=== PATIENT | female | born 1990 | race Caucasian/White ===

== ENCOUNTER 2017-10-25 15:24 | Emergency (ER) | payer OTHER ==
[2017-10-25 16:16] LABS: ADD MAN DIFF? NO
[2017-10-25 16:18] LABS: WHITE BLOOD COUNT 8.2 10^3/ul (4.8-10.8)
[2017-10-25 16:18] LABS: BASOPHIL # 0.1 10^3/ul (0.0-0.1); BASOPHILS % 0.6 % (0.0-2.0); EOSINOPHILS # 0.5 10^3/ul (0.0-0.5); EOSINOPHILS % 5.5 % (0.0-7.0); HEMATOCRIT 37.8 % (37.0-47.0); HEMOGLOBIN 12.4 g/dl (12.0-16.0); LYMPHOCYTES # 3.3 10^3/ul (0.8-2.9); LYMPHOCYTES % 40.5 % (15.0-51.0); MEAN CORPUSCULAR HEMOGLOBIN 26.7 pg (29.0-33.0); MEAN CORPUSCULAR HGB CONC 32.8 g/dl (32.0-37.0); MEAN CORPUSCULAR VOLUME 81.5 fl (82.0-101.0); MONOCYTE # 0.6 10^3/ul (0.3-0.9); MONOCYTES % 7.8 % (0.0-11.0); NEUTROPHIL # 3.7 10^3/ul (1.6-7.5); NEUTROPHILS % 45.4 % (39.0-77.0); PLATELET COUNT 378 10^3/UL (140-415); RED BLOOD COUNT 4.64 10^6/ul (4.20-5.40); RED CELL DISTRIBUTION WIDTH 15.1 % (11.5-14.5)
[2017-10-25] MEDS: SOD CHLORIDE 0.9% 1,000 ML IV (16:24)
[2017-10-25] MEDS: ONDANSETRON 4 MG INJ IV (16:25)
[2017-10-25] MEDS: morphine 4 MG/ML VIAL IV (16:25)
[2017-10-25 16:37] LABS: ALANINE AMINOTRANSFERASE 45 IU/L (13-69); ALBUMIN 4.3 g/dl (3.3-4.9); ALBUMIN/GLOBULIN RATIO 1.48; ALKALINE PHOSPHATASE 77 IU/L (42-121); ANION GAP 17 (8-16); ASPARTATE AMINO TRANSFERASE 29 IU/L (15-46); BILIRUBIN,INDIRECT 0.3 mg/dl (0-1.1); BILIRUBIN,TOTAL 0.3 mg/dl (0.2-1.3); BLOOD UREA NITROGEN 7 mg/dl (7-20); CALCIUM 8.6 mg/dl (8.4-10.2); CARBON DIOXIDE 24 mmol/L (21-31); CHLORIDE 103 mmol/L (97-110); CREATININE 0.57 mg/dl (0.44-1.00); GLUCOSE 105 mg/dl (70-220); LIPASE 160 U/L (23-300); POTASSIUM 4.2 mmol/L (3.5-5.1); SODIUM 140 mmol/L (135-144); TOTAL PROTEIN 7.2 g/dl (6.1-8.1)
[2017-10-25 16:49] LABS: ADD UMIC YES; UR ASCORBIC ACID NEGATIVE (NEGATIVE); UR BILIRUBIN (Dip) NEGATIVE (NEGATIVE); UR BLOOD (Dip) 1+ mg/dL (NEGATIVE); UR CLARITY CLEAR (CLEAR); UR COLOR STRAW (YELLOW); UR GLUCOSE (Dip) NEGATIVE (NEGATIVE); UR KETONES (Dip) NEGATIVE (NEGATIVE); UR LEUKOCYTE ESTERASE (Dip) TRACE Leu/ul (NEGATIVE); UR NITRITE (Dip) NEGATIVE (NEGATIVE); UR RBC 1 /HPF (0-5); UR SPECIFIC GRAVITY (Dip) 1.002 (1.003-1.030); UR TOTAL PROTEIN (Dip) NEGATIVE (NEGATIVE); UR UROBILINOGEN (Dip) NEGATIVE (NEGATIVE); UR WBC 1 /HPF (0-5)
== END 2017-10-25 20:30 | disposition home or self-care (01) ==
LOC: E/R 15:24
DX: R10.31 Right lower quadrant pain (principal); R40.2142 Coma scale, eyes open, spontaneous, at arrival to emergency department; R40.2252 Coma scale, best verbal response, oriented, at arrival to emergency department; R40.2362 Coma scale, best motor response, obeys commands, at arrival to emergency department; R10.2 Pelvic and perineal pain
CPT/HCPCS: 36415; 74176; 76856; 80053; 81001; 83690; 85025; 96374; 96375; 99285-25

== ENCOUNTER 2017-11-17 20:57 | Emergency (ER) | payer OTHER ==
[2017-11-18] MEDS: IBUPROFEN 800 MG TAB PO (07:04)
== END 2017-11-18 08:32 | disposition home or self-care (01) ==
LOC: FTE 20:57
DX: R07.81 Pleurodynia (principal)
CPT/HCPCS: 71045; 93005; 99284-25

== ENCOUNTER 2018-08-09 14:39 | Emergency (ER) | payer OTHER ==
[2018-08-09] MEDS: LIDOCAINE/MYLANTA 40 ML BTL PO (15:19)
[2018-08-09] MEDS: ONDANSETRON 4 MG INJ IV (15:19)
[2018-08-09] MEDS: FAMOTIDINE 20 MG INJ IV (15:19)
[2018-08-09 15:20] LABS: ADD MAN DIFF? NO
[2018-08-09 15:28] LABS: WHITE BLOOD COUNT 8.8 10^3/ul (4.8-10.8)
[2018-08-09 15:28] LABS: BASOPHILS % 0.3 % (0.0-2.0); EOSINOPHILS # 0.3 10^3/ul (0.0-0.5); EOSINOPHILS % 3.5 % (0.0-7.0); HEMOGLOBIN 13.1 g/dl (12.0-16.0); LYMPHOCYTES # 3.2 10^3/ul (0.8-2.9); LYMPHOCYTES % 36.1 % (15.0-51.0); MEAN CORPUSCULAR HEMOGLOBIN 27.9 pg (29.0-33.0); MEAN CORPUSCULAR HGB CONC 33.6 g/dl (32.0-37.0); MEAN PLATELET VOLUME 10.1 fl (7.4-10.4); MONOCYTE # 0.7 10^3/ul (0.3-0.9); MONOCYTES % 7.9 % (0.0-11.0); NEUTROPHIL # 4.6 10^3/ul (1.6-7.5); NEUTROPHILS % 52.1 % (39.0-77.0); PLATELET COUNT 286 10^3/UL (140-415); RED CELL DISTRIBUTION WIDTH 13.9 % (11.5-14.5)
[2018-08-09 15:38] LABS: ADD UMIC NO; UR ASCORBIC ACID NEGATIVE (NEGATIVE); UR BILIRUBIN (Dip) NEGATIVE (NEGATIVE); UR BLOOD (Dip) NEGATIVE (NEGATIVE); UR CLARITY CLEAR (CLEAR); UR COLOR STRAW (YELLOW); UR GLUCOSE (Dip) NEGATIVE (NEGATIVE); UR KETONES (Dip) NEGATIVE (NEGATIVE); UR LEUKOCYTE ESTERASE (Dip) NEGATIVE Leu/ul (NEGATIVE); UR NITRITE (Dip) NEGATIVE (NEGATIVE); UR SPECIFIC GRAVITY (Dip) 1.009 (1.003-1.030); UR TOTAL PROTEIN (Dip) NEGATIVE (NEGATIVE); UR UROBILINOGEN (Dip) 2+ mg/dL (NEGATIVE)
[2018-08-09 15:49] LABS: ALANINE AMINOTRANSFERASE 58 IU/L (13-69); ALBUMIN 3.8 g/dl (3.3-4.9); ALBUMIN/GLOBULIN RATIO 1.11; ALKALINE PHOSPHATASE 76 IU/L (42-121); ANION GAP 13 (5-13); ASPARTATE AMINO TRANSFERASE 44 IU/L (15-46); BILIRUBIN,INDIRECT 0.3 mg/dl (0-1.1); BILIRUBIN,TOTAL 0.3 mg/dl (0.2-1.3); BLOOD UREA NITROGEN 8 mg/dl (7-20); CALCIUM 9.5 mg/dl (8.4-10.2); CARBON DIOXIDE 22 mmol/L (21-31); CHLORIDE 106 mmol/L (97-110); CREATININE 0.78 mg/dl (0.44-1.00); Estimated GFR > 60 mL/min (>60); GLUCOSE 121 mg/dl (70-220); LIPASE 163 U/L (23-300); SODIUM 141 mmol/L (135-144); TOTAL PROTEIN 7.2 g/dl (6.1-8.1)
== END 2018-08-09 16:47 | disposition home or self-care (01) ==
LOC: FTE 14:39
DX: K80.20 Calculus of gallbladder without cholecystitis without obstruction (principal)
CPT/HCPCS: 76705; 80053; 81003; 81025; 83690; 85025; 96374; 96375; 99285-25

== ENCOUNTER 2018-11-14 17:06 | Inpatient (IN) | payer OTHER ==
[2018-11-14] MEDS: SOD CHLORIDE 0.9% 1,000 ML IV (17:51)
[2018-11-14] MEDS: KETOROLAC 15 MG INJ IV (17:53)
[2018-11-14] MEDS: ONDANSETRON 4 MG INJ IV ×2 (17:53→21:12)
[2018-11-14 17:56] LABS: ADD MAN DIFF? NO
[2018-11-14 17:57] LABS: WHITE BLOOD COUNT 10.8 10^3/ul (4.8-10.8)
[2018-11-14 17:57] LABS: BASOPHIL # 0.1 10^3/ul (0.0-0.1); BASOPHILS % 0.6 % (0.0-2.0); EOSINOPHILS # 0.6 10^3/ul (0.0-0.5); EOSINOPHILS % 5.4 % (0.0-7.0); HEMATOCRIT 40.5 % (37.0-47.0); HEMOGLOBIN 13.3 g/dl (12.0-16.0); LYMPHOCYTES # 3.8 10^3/ul (0.8-2.9); LYMPHOCYTES % 35.1 % (15.0-51.0); MEAN CORPUSCULAR HEMOGLOBIN 27.8 pg (29.0-33.0); MEAN CORPUSCULAR HGB CONC 32.8 g/dl (32.0-37.0); MEAN CORPUSCULAR VOLUME 84.6 fl (82.0-101.0); MEAN PLATELET VOLUME 9.8 fl (7.4-10.4); MONOCYTE # 0.8 10^3/ul (0.3-0.9); MONOCYTES % 7.6 % (0.0-11.0); NEUTROPHIL # 5.6 10^3/ul (1.6-7.5); PLATELET COUNT 281 10^3/UL (140-415); RED BLOOD COUNT 4.79 10^6/ul (4.20-5.40); RED CELL DISTRIBUTION WIDTH 13.7 % (11.5-14.5)
[2018-11-14 18:00] LABS: ADD UMIC YES; UR ASCORBIC ACID NEGATIVE (NEGATIVE); UR BILIRUBIN (Dip) NEGATIVE (NEGATIVE); UR BLOOD (Dip) NEGATIVE (NEGATIVE); UR CLARITY SLIGHTLY CLOUDY (CLEAR); UR COLOR YELLOW (YELLOW); UR GLUCOSE (Dip) NEGATIVE (NEGATIVE); UR KETONES (Dip) NEGATIVE (NEGATIVE); UR LEUKOCYTE ESTERASE (Dip) TRACE Leu/ul (NEGATIVE); UR NITRITE (Dip) NEGATIVE (NEGATIVE); UR RBC 1 /HPF (0-5); UR SPECIFIC GRAVITY (Dip) 1.014 (1.003-1.030); UR SQUAMOUS EPITHELIAL CELL FEW /HPF (FEW); UR TOTAL PROTEIN (Dip) NEGATIVE (NEGATIVE); UR UROBILINOGEN (Dip) NEGATIVE (NEGATIVE); UR WBC 1 /HPF (0-5)
[2018-11-14 18:14] LABS: ALANINE AMINOTRANSFERASE 41 IU/L (13-69); ALBUMIN 4.5 g/dl (3.3-4.9); ALKALINE PHOSPHATASE 75 IU/L (42-121); ANION GAP 10 (5-13); ASPARTATE AMINO TRANSFERASE 38 IU/L (15-46); BILIRUBIN,INDIRECT 0.1 mg/dl (0-1.1); BILIRUBIN,TOTAL 0.1 mg/dl (0.2-1.3); BLOOD UREA NITROGEN 9 mg/dl (7-20); CALCIUM 9.5 mg/dl (8.4-10.2); CARBON DIOXIDE 25 mmol/L (21-31); CHLORIDE 105 mmol/L (97-110); Estimated GFR > 60 mL/min (>60); GLUCOSE 105 mg/dl (70-220); LIPASE 250 U/L (23-300); POTASSIUM 4.1 mmol/L (3.5-5.1); SODIUM 140 mmol/L (135-144); TOTAL PROTEIN 7.7 g/dl (6.1-8.1)
[2018-11-14 18:24] LABS: INR 0.85; PROTIME 11.7 Sec (11.9-14.9); PT RATIO 0.9
[2018-11-14] MEDS: PIPER-TAZO 3.375 GM IV (PMX) 100 ML IVPB (20:23)
[2018-11-14] MEDS ORDERED: ACETAMINOPHEN 325 MG TAB PO (21:00)
[2018-11-14] MEDS: HYDROmorphONE 0.5 MG/0.5 ML SYG IV (21:12)
[2018-11-14] MEDS ORDERED: ALBUTEROL/IPRATROPIUM (NEB) 3 ML AMP HHN (21:30)
[2018-11-14] MEDS ORDERED: morphine 2 MG INJ IV (21:30)
[2018-11-14] MEDS ORDERED: ONDANSETRON 4 MG INJ IV (21:30)
[2018-11-14] MEDS ORDERED: NACL 0.9% 3 ML SYG IV (21:30)
[2018-11-14] MEDS: morphine 4 MG/ML VIAL IV (22:54)
[2018-11-14] MEDS: DEXTROSE 5%-0.45% NACL 1,000 ML IV (22:54)
[2018-11-15 04:57] LABS: ADD MAN DIFF? NO
[2018-11-15 05:03] LABS: WHITE BLOOD COUNT 8.5 10^3/ul (4.8-10.8)
[2018-11-15 05:03] LABS: BASOPHILS % 0.4 % (0.0-2.0); EOSINOPHILS # 0.5 10^3/ul (0.0-0.5); EOSINOPHILS % 5.4 % (0.0-7.0); HEMATOCRIT 36.9 % (37.0-47.0); HEMOGLOBIN 11.9 g/dl (12.0-16.0); LYMPHOCYTES # 3.4 10^3/ul (0.8-2.9); LYMPHOCYTES % 40.1 % (15.0-51.0); MEAN CORPUSCULAR HEMOGLOBIN 27.7 pg (29.0-33.0); MEAN CORPUSCULAR HGB CONC 32.2 g/dl (32.0-37.0); MEAN CORPUSCULAR VOLUME 85.8 fl (82.0-101.0); MEAN PLATELET VOLUME 10.1 fl (7.4-10.4); MONOCYTE # 0.6 10^3/ul (0.3-0.9); MONOCYTES % 6.7 % (0.0-11.0); NEUTROPHILS % 47.3 % (39.0-77.0); PLATELET COUNT 260 10^3/UL (140-415)
[2018-11-15 05:37] LABS: ALANINE AMINOTRANSFERASE 40 IU/L (13-69); ALBUMIN 3.6 g/dl (3.3-4.9); ALBUMIN/GLOBULIN RATIO 1.16; ALKALINE PHOSPHATASE 57 IU/L (42-121); ANION GAP 6 (5-13); ASPARTATE AMINO TRANSFERASE 29 IU/L (15-46); BILIRUBIN,INDIRECT 0.4 mg/dl (0-1.1); BILIRUBIN,TOTAL 0.4 mg/dl (0.2-1.3); BLOOD UREA NITROGEN 6 mg/dl (7-20); CALCIUM 8.4 mg/dl (8.4-10.2); CARBON DIOXIDE 23 mmol/L (21-31); CHLORIDE 111 mmol/L (97-110); CREATININE 0.58 mg/dl (0.44-1.00); Estimated GFR > 60 mL/min (>60); GLUCOSE 105 mg/dl (70-220); MAGNESIUM 2.1 mg/dl (1.7-2.5); PHOSPHORUS 4.5 mg/dl (2.5-4.9); POTASSIUM 3.8 mmol/L (3.5-5.1); SODIUM 140 mmol/L (135-144); TOTAL PROTEIN 6.7 g/dl (6.1-8.1)
[2018-11-15] MEDS: DEXTROSE 5%-0.45% NACL 1,000 ML IV (06:41)
[2018-11-15] MEDS: morphine 4 MG/ML VIAL IV ×4 (06:41→17:39)
[2018-11-15] MEDS: PIPER-TAZO 3.375 GM IV (PMX) 100 ML IVPB ×4 (06:50→23:22)
[2018-11-15] MEDS ORDERED: PROPOFOL 100 ML (08:01)
[2018-11-15] MEDS ORDERED: ROCURONIUM 50 MG INJ (08:01)
[2018-11-15] MEDS ORDERED: ONDANSETRON 4 MG INJ (08:02)
[2018-11-15] MEDS ORDERED: CEFAZOLIN 1 GM INJ (08:02)
[2018-11-15] MEDS ORDERED: DEXAMETHASONE 4 MG/ML 5 ML INJ (08:02)
[2018-11-15] MEDS ORDERED: LIDOCAINE 2% (SDV) 5 ML INJ (08:03)
[2018-11-15] MEDS: LIDOCAINE 1%/EPI (1:100,000) (MDV) 20 ML (08:45)
[2018-11-15] MEDS: BUPIVACAINE 0.25% (MPF) 30 ML INJ (08:45)
[2018-11-15] MEDS ORDERED: SUGAMMADEX SODIUM 200 MG/2 ML VIAL IV (08:56)
[2018-11-15] MEDS ORDERED: ACETAMINOPHEN 325 MG TAB PO (09:00)
[2018-11-15] MEDS ORDERED: ONDANSETRON 4 MG INJ IV ×2 (09:00→09:30)
[2018-11-15] MEDS: D5-NS + KCL 20 MEQ 1,000 ML IV ×3 (09:00→23:22)
[2018-11-15] MEDS ORDERED: EPHEDrine SULFATE 50 MG/5 ML SYG IV (09:30)
[2018-11-15] MEDS ORDERED: MIDAZOLAM 1 MG/ML 2 ML INJ IV (09:30)
[2018-11-15] MEDS ORDERED: DIPHENHYDRAMINE 50 MG INJ IV (09:30)
[2018-11-15] MEDS ORDERED: HYDROmorphONE 1 MG/5 ML IV SYRINGE IV ×2 (09:30)
[2018-11-15] MEDS ORDERED: METOCLOPRAMIDE 10 MG INJ IV (09:30)
[2018-11-15] MEDS ORDERED: FENTAnyl 50 MCG/ML VIAL IV ×3 (09:30)
[2018-11-15] MEDS ORDERED: ALBUTEROL 0.083% (NEB) 2.5 MG/3 ML AMP HHN (09:30)
[2018-11-15] MEDS ORDERED: MEPERIDINE 25 MG INJ IV (09:30)
[2018-11-15] MEDS ORDERED: hydrALAzine 20 MG INJ IV (09:30)
[2018-11-15] MEDS ORDERED: LABETALOL HCL 20MG INJ IV (09:30)
[2018-11-15] MEDS: HYDROmorphONE 1 MG/5 ML IV SYRINGE IV (09:44)
[2018-11-15] MEDS: FAMOTIDINE 20 MG INJ IV ×2 (09:44→20:36)
[2018-11-15] MEDS: KETOROLAC 15 MG INJ IV ×3 (09:45→20:36)
[2018-11-15] MEDS: HYDROCODONE/APAP (5/325) TAB PO (23:22)
[2018-11-16] MEDS: KETOROLAC 15 MG INJ IV ×2 (03:43→09:15)
[2018-11-16 05:40] LABS: ADD MAN DIFF? NO
[2018-11-16] MEDS: PIPER-TAZO 3.375 GM IV (PMX) 100 ML IVPB (05:45)
[2018-11-16 05:53] LABS: BASOPHILS % 0.1 % (0.0-2.0); EOSINOPHILS % 0.1 % (0.0-7.0); HEMATOCRIT 36.5 % (37.0-47.0); HEMOGLOBIN 11.8 g/dl (12.0-16.0); LYMPHOCYTES # 1.8 10^3/ul (0.8-2.9); LYMPHOCYTES % 14.3 % (15.0-51.0); MEAN CORPUSCULAR HEMOGLOBIN 27.7 pg (29.0-33.0); MEAN CORPUSCULAR HGB CONC 32.3 g/dl (32.0-37.0); MEAN CORPUSCULAR VOLUME 85.7 fl (82.0-101.0); MEAN PLATELET VOLUME 10.3 fl (7.4-10.4); MONOCYTE # 0.6 10^3/ul (0.3-0.9); MONOCYTES % 4.6 % (0.0-11.0); NEUTROPHIL # 10.2 10^3/ul (1.6-7.5); NEUTROPHILS % 80.5 % (39.0-77.0); PLATELET COUNT 292 10^3/UL (140-415); RED BLOOD COUNT 4.26 10^6/ul (4.20-5.40); RED CELL DISTRIBUTION WIDTH 13.6 % (11.5-14.5)
[2018-11-16 05:53] LABS: WHITE BLOOD COUNT 12.6 10^3/ul (4.8-10.8)
[2018-11-16 06:04] LABS: ALANINE AMINOTRANSFERASE 65 IU/L (13-69); ALBUMIN 3.9 g/dl (3.3-4.9); ALBUMIN/GLOBULIN RATIO 1.21; ALKALINE PHOSPHATASE 64 IU/L (42-121); ANION GAP 6 (5-13); ASPARTATE AMINO TRANSFERASE 46 IU/L (15-46); BILIRUBIN,INDIRECT 0.4 mg/dl (0-1.1); BILIRUBIN,TOTAL 0.4 mg/dl (0.2-1.3); BLOOD UREA NITROGEN 7 mg/dl (7-20); CARBON DIOXIDE 22 mmol/L (21-31); CHLORIDE 112 mmol/L (97-110); CREATININE 0.57 mg/dl (0.44-1.00); Estimated GFR > 60 mL/min (>60); GLUCOSE 128 mg/dl (70-220); POTASSIUM 4.2 mmol/L (3.5-5.1); SODIUM 140 mmol/L (135-144); TOTAL PROTEIN 7.1 g/dl (6.1-8.1)
[2018-11-16] MEDS ORDERED: ENOXAPARIN 40 MG/0.4 ML SYG SC (07:00)
[2018-11-16] MEDS: D5-NS + KCL 20 MEQ 1,000 ML IV (09:00)
[2018-11-16] MEDS: FAMOTIDINE 20 MG INJ IV (09:15)
[2018-11-16] MEDS: ENOXAPARIN 40 MG/0.4 ML SYG SC (09:16)
[2018-11-16] MEDS: HYDROCODONE/APAP (5/325) TAB PO (13:39)
== END 2018-11-16 14:19 | disposition home or self-care (01) | DRG 419 ==
LOC: FTE 17:06 → MS1 20:52
PROC: 0FT44ZZ Resection of Gallbladder, Percutaneous Endoscopic Approach (ICD-10-PCS; principal; 2018-11-15 08:00)
DX: K80.12 Calculus of gallbladder with acute and chronic cholecystitis without obstruction (principal)
CPT/HCPCS: 36415; 76705; 80053; 81001; 81025; 83690; 83735; 84100; 85025; 85610; 85730; 88304; 90686; 96374; 96375; 99285-25

== ENCOUNTER 2019-02-26 19:51 | Emergency (ER) | payer OTHER ==
[2019-02-26] MEDS: ASPIRIN 325 MG TAB PO (23:29)
[2019-02-26] MEDS: LORAZEPAM 1 MG TAB PO (23:29)
== END 2019-02-26 23:46 | disposition home or self-care (01) ==
LOC: FTE 19:51
DX: M94.0 Chondrocostal junction syndrome [Tietze] (principal); F17.210 Nicotine dependence, cigarettes, uncomplicated; F41.9 Anxiety disorder, unspecified
CPT/HCPCS: 99283-25; Z7610